=== PATIENT | female | born 1995 | race Caucasian/White ===

== ENCOUNTER 2023-01-06 15:34 | Outpatient (CLI) | payer OTHER ==
[2023-01-06 16:22] LABS: #Basophils 0.1 10x3/uL (0.0-0.2); #Eosinphils 0.1 10x3/uL (0.0-0.5); #Monocytes 0.4 10x3/uL (0.0-1.1); #Neutrophils 3.3 10x3/uL (1.5-8.4); %Basophils 1.1 % (0.0-2.0); %Eosinophils 1.8 % (0.0-6.0); %Lymphocytes 28.3 % (18.0-47.0); %Monocytes 8.1 % (0.0-10.0); %Neutrophils 60.3 % (40.0-75.0); Hemoglobin 14.1 g/dL (12.0-15.5); Mean Corpuscular HGB CONC 33.7 g/dL (32.0-36.0); Mean Corpuscular Hemoglobin 30.5 pg (27.0-33.0); Mean Corpuscular Volume 90.5 fl (81.6-98.3); Mean Platelet Volume 9.5 fl (7.4-10.4); Platelet Count 261 10x3/uL (150-450); RBC Distribution Width 12.9 % (11.5-14.5); Red Blood Cell (RBC) Count 4.63 10x6/uL (3.90-5.03); White Blood Cell (WBC) Count 5.5 10x3/uL (3.5-10.5)
[2023-01-06 16:39] LABS: BHCG - Serum Negative (NEGATIVE); Pregs Control Background? CLEAR/WHITE (CLR/WHITE); Pregs Control Bar Appear? YES (CONTROL BAR)
== END 2023-01-06 15:35 | disposition home or self-care (01) ==
LOC: LABBT 15:34
PROVIDERS: ATTEND Surgery
DX: Z01.812 Encounter for preprocedural laboratory examination (principal); K43.9 Ventral hernia without obstruction or gangrene
CPT/HCPCS: 84703; 85025

== ENCOUNTER 2023-01-15 10:01 | Day surgery (SDC) | payer OTHER ==
[2023-01-06 15:50] VITALS: BMI 23.8
[2023-01-15] MEDS ORDERED: fentaNYL PF 100 MCG/2 ML SYRINGE ONE (10:36)
[2023-01-15] MEDS ORDERED: Bupivacaine PF 0.5% 30 ML VIAL ONE (10:41)
[2023-01-15] MEDS ORDERED: EPINEPHrine 1 MG/ML AMP ONE (10:41)
[2023-01-15] MEDS ORDERED: Sodium Chloride 0.9% 100 ML ONE (12:02)
[2023-01-15] MEDS ORDERED: CEFAZOLIN 2 GM VIAL ONE (12:02)
[2023-01-15] MEDS ORDERED: Ketorolac Tromethamine 30 MG/ML VIAL ONE (12:36)
[2023-01-15] MEDS ORDERED: PROPOFOL 200 MG/20 ML VIAL ONE (12:36)
[2023-01-15] MEDS ORDERED: Dexamethasone 20 MG/5 ML VIAL ONE (12:36)
[2023-01-15] MEDS ORDERED: Ondansetron PF 4 MG/2 ML Vial ONE (12:36)
[2023-01-15] MEDS ORDERED: Lidocaine 1% PF 5 ML VIAL ONE (12:36)
[2023-01-15] MEDS ORDERED: Meperidine HCl/PF 25 MG/ML VIAL ONE (13:21)
[2023-01-15] MEDS ORDERED: fentaNYL 50 mcg/mL 1 mL Vial ONE ×2 (13:34→13:48)
== END 2023-01-15 14:42 | disposition home or self-care (01) ==
LOC: SDC 10:01
PROVIDERS: ATTEND Surgery
PROC: 0WUF0JZ Supplement Abdominal Wall with Synthetic Substitute, Open Approach (ICD-10-PCS; principal; 2023-01-15)
DX: K43.9 Ventral hernia without obstruction or gangrene (principal)
CPT/HCPCS: C1889; J0171; J1100; J1885; J2175; J2405; J2704; J3010; J3490; S0020